=== PATIENT | female | born 1960 | race Hispanic/Latino ===

== ENCOUNTER 2016-12-12 08:10 | Outpatient (CLI) | payer OTHER ==
--- NOTE | 2016-12-12 11:12 | Nuclear Medicine Report ---
Gastric emptying scan: Nausea and vomiting. Following oral ingestion of oatmeal labeled with technetium 99m sulfur colloid the patient demonstrated a one half gastric emptying time of 51 minutes. This is well within our normal range of 90 minutes. Impression: Normal exam.
== END 2016-12-12 08:11 | disposition home or self-care (01) ==
LOC: NM 08:10
PROVIDERS: ATTEND Internal Medicine Gastroenterology
DX: R11.2 Nausea with vomiting, unspecified (principal)
CPT/HCPCS: 78264; A9541